=== PATIENT | male | born 1945 | race Caucasian/White ===

== ENCOUNTER 2018-10-06 14:30 | Emergency (ER) | payer MEDICARE, OTHER ==
[2018-10-06 14:40] VITALS: BP 144/82
--- NOTE | 2018-10-06 14:48 | EDM.PDOC ---
ED HPI GENERAL MEDICAL PROBLEM - General Chief Complaint: Lower Extremity Injury/Pain Stated Complaint: Ingrown Toe Nail Time Seen by Provider: 10/06/18 14:30 Source of Information: Reports: Patient History Limitations: Reports: No Limitations - History of Present Illness INITIAL COMMENTS - FREE TEXT/NARRATIVE: Patient's a 73-year-old male presents ED complaining of ingrown toenail to the right great toe along the medial border. States a portion of the nail fell off in the medial border has grown into his skin. He has attempted to take the corner of the nail out from the skin causing some increased redness and pain. Patient is a newly diagnosed diabetic. Denies any redness streaking up his leg. Denies any neuropathy or paresthesias. Left Toe-Hailux Pain Score (Numeric/FACES): 7 - Related Data Allergies Allergy/AdvReac Type Severity Reaction Status Date / Time ciprofloxacin Allergy Abdominal Verified 10/06/18 14:40 Pain Penicillins Allergy Other Verified 10/06/18 14:40 Home Meds: Home Meds cephALEXin [Keflex] 500 mg PO Q8H #21 cap 10/06/18 [Rx] Past Medical History Gastrointestinal History: Reports: Other (See Below) Other Gastrointestinal History: diverticulitis Endocrine/Metabolic History: Reports: Diabetes, Type II - Past Surgical History Cardiovascular Surgical History: Reports: AAA Repair GI Surgical History: Reports: Other (See Below) Other GI Surgeries/Procedures: foot of bowel removed Social & Family History - Tobacco Use Smoking Status *Q: Former Smoker Used Tobacco, but Quit: Yes Month/Year Tobacco Last Used: 8 years ago - Caffeine Use Caffeine Use: Reports: Coffee - Recreational Drug Use Recreational Drug Use: No Review of Systems - Review of Systems Review Of Systems: ROS reveals no pertinent complaints other than HPI. ED EXAM, GENERAL - Physical Exam Exam: See Below Exam Limited By: No Limitations General Appearance: Alert, WD/WN, No Apparent Distress Ears: Hearing Grossly Normal Nose: Normal Inspection Throat/Mouth: Normal Voice, No Airway Compromise Neck: Normal Inspection, Supple Respiratory/Chest: No Respiratory Distress, No Accessory Muscle Use Cardiovascular: Normal Peripheral Pulses, Regular Rate, Rhythm Peripheral Pulses: 2+: Posterior Tibial (R) Extremities: Other (Infected right great toenail along the medial border. Increased redness, swelling, with minimal drainage present. No pain with flexion extension of the toe.) Neurological: Alert, Oriented, CN II-XII Intact, Normal Cognition, Normal Gait, No Motor/Sensory Deficits Psychiatric: Normal Affect, Normal Mood Skin Exam: Warm, Dry Course - Vital Signs Last Recorded V/S: Last Vital Signs Temp 97.1 F 10/06/18 14:36 Pulse 72 10/06/18 14:36 Resp 16 10/06/18 14:36 BP 144/82 H 10/06/18 14:36 Pulse Ox 95 10/06/18 14:36 - Orders/Labs/Meds Meds: Medications Discontinued Medications Generic Name Dose Route Start Last Admin Trade Name Frecameron PRN Reason Stop Dose Admin Cephalexin 500 mg 10/06/18 15:19 10/06/18 15:28 Keflex PO 10/06/18 15:20 500 mg ONETIME ONE Administration - Re-Assessments/Exams Free Text/Narrative Re-Assessment/Exam: Patient has a ingrown toenail medial border. It's infected. I will not attempt to perform a wedge resection to the toenail due to his diabetes. Patient has attempted to make an appointment with a spooling machine operator here locally and was unable to make an appointment since they do not have an appointments available until October. I advised the patient I will not perform the resection. I will attempt to make an appointment for him in [place] for this week. Patient has a PCN allergy and gets hives. Ordered keflex 500mg 1 tab PO. I have spoken with Dr. Rosario's Nurse. They were able to schedule appt with Dr. Rosario for this Weds at 1600hrs. They will call if appt time changes. Departure - Departure Time of Disposition: 15:27 Disposition: Home, Self-Care 01 Condition: Good Clinical Impression: Ingrown toenail - Discharge Information Prescriptions: cephALEXin [Keflex] 500 mg PO Q8H #21 cap Instructions: Ingrown Toenail Referrals: Jose Rivera MD [Primary Care Provider] - Forms: ED Department Discharge Additional Instructions: Dr. Marlene Holcomb Buggy Runner in [place], [place] Address: [address], [place] [address] will see you 10/08/2018 at 1600 hrs for removal of infected toenail. Soak the affected toe and warm water with Epsom salts 3 times a day. Elevate when able to reduce any swelling. Do not pick at the toenail any further. Take the full course of Keflex as prescribed. Monitor for any new or worsening symptoms. If so return back to the ED.
[2018-10-06] MEDS ORDERED: Cephalexin 500 MG Cap PO ONE (15:19)
== END 2018-10-06 15:29 | disposition home or self-care (01) ==
LOC: JD.ED 14:30
DX: L60.0 Ingrowing nail (principal); E11.9 Type 2 diabetes mellitus without complications; Z87.891 Personal history of nicotine dependence; Z88.0 Allergy status to penicillin; Z88.1 Allergy status to other antibiotic agents
CPT/HCPCS: 99283; A9270